=== PATIENT | female | born 1960 | race Caucasian/White ===

== ENCOUNTER 2022-07-28 06:26 | Day surgery (SDC) | payer OTHER, SELFPAY ==
[2022-07-15 10:26] VITALS: BMI 23.1
--- NOTE | 2022-07-28 06:53 | P.PNAN_ITS ---
Anes - Initial Pre Proc Eval Procedure: Operation Date: 07/28/22 08:00 Proposed Procedures p Diagnostic Colonoscopy - Morgan Morales MD Date/Time: 07/28/22 06:53 Surgeon: Morgan Morales MD Pre Op Diagnosis: Other Fecal Abnormalities Patient Data Age: 61 Gender: F Height: 1.63 m Weight: 61 kg Allergies Allergy/AdvReac Type Severity Reaction Status Date / Time NKDA Allergy Mild Other Uncoded 07/28/22 06:54 Home Medications Medication Instructions Recorded Confirmed Type diphenhydramine 25 1 tablet PO HS PRN Insomnia 07/15/22 07/28/22 History mg-acetaminophen 500 mg tablet (Acetaminophen PM) Patient hx anesthesia problems: none Family hx anesthesia problems: none Results Review: All pre-operative results and documents have been reviewed as part of the pre- operative evaluation. [facility] Past Medical History Medical History (Updated 07/28/22 @ 06:54 by Jian Aviles DO) IBS (irritable bowel syndrome) Social History Social History Smoking packs per day: 1 Smoking cigarettes per day: 20.0 Years smoked: 40 Smoking pack-years: 40.00 Smoking status: Current every day smoker Tobacco type: cigarettes Alcohol intake: current Substance use: never Substance use type: does not use Living arrangements: with family Spiritual care concerns: No Anes - Eval Final PreProcedure Day of Procedure 07/28/22 06:53 Patient weight: normal Heart: regular rate and rhythm Lungs: clear to auscultation and normal air movement Airway: Mallampati scale class II Neurological: alert and oriented Last oral intake: >/= 8 hours ASA classification: II Emergent: no Anesthetic plan: proceed Anesthesia type and monitoring: general GIVS and standard monitoring Results Review: All pre-operative results and documents have been reviewed as part of the pre- operative evaluation. Informed Consent: The patient's anesthetic plan and its attendant risks and benefits were discussed with the patient/family/POA. Questions were solicited and answers provided to the satisfaction of the patient/family/POA.
[2022-07-28 06:56] VITALS: BP 126/91; PULSE 95; RESP 16; TEMP 37.2; O2SAT 99
[2022-07-28] MEDS: LACTATED RINGERS 1,000 ML 150 ML IV CONT (07:12)
--- NOTE | 2022-07-28 08:01 | PM.HPGS ---
History of Present Illness History of Present Illness Consent: Risks, benefits, and alternatives have been discussed and questions answered. Patient agrees to proceed with procedure. Chief complaint: Other Fecal Abnormalities Narrative: Candida Leavitt is a 61 year old female here for first colonoscopy, had positive cologuard Review of Systems Constitutional: Constitutional: Denies headache(s) and Denies weakness Eyes: Eyes: Denies blurry vision ENT: Reports Normal hearing present, Denies headache(s) and Denies neck pain Cardiovascular: Cardiovascular: Denies chest pain and Denies dyspnea Respiratory: Respiratory: Denies dyspnea Gastrointestinal: Gastrointestinal: Reports no additional gastrointestinal complaints Genitourinary: Genitourinary: Denies dysuria Musculoskeletal: Musculoskeletal: Denies neck pain Integumentary/Breasts: Skin/Breast: Denies dry skin Neurologic: Reports Normal hearing present, Denies headache(s) and Denies weakness Psychiatric: Psychiatric: Denies anxiety Endocrine: Endocrine: Denies change in body appearance Hematologic/Lymphatic: Hematologic/Lymphatic: Denies easy bleeding Allergic/Immunologic: Allergic/Immunologic: Denies urticaria PMFSH Past Medical History Medical History (Updated 07/28/22 @ 08:02 by Morgan Morales MD) IBS (irritable bowel syndrome) Positive colorectal cancer screening using Cologuard test Social History Social History Smoking packs per day: 1 Smoking cigarettes per day: 20.0 Years smoked: 40 Smoking pack-years: 40.00 Smoking status: Current every day smoker Tobacco type: cigarettes Alcohol intake: current Substance use: never Substance use type: does not use Living arrangements: with family Spiritual care concerns: No Meds Home Medications and Allergies Home Medications Medication Instructions Recorded Confirmed Type diphenhydramine 25 1 tablet PO HS PRN Insomnia 07/15/22 07/28/22 History mg-acetaminophen 500 mg tablet (Acetaminophen PM) Allergies Allergy/AdvReac Type Severity Reaction Status Date / Time NKDA Allergy Mild Other Uncoded 07/28/22 06:54 Vital Signs Vital Signs - 24 hr 07/28/22 06:56 Temperature 98.9 F Pulse Rate 95 Respiratory Rate 16 Blood Pressure 126/91 H Pulse Oximetry 99 Oxygen Delivery Room Air Exam Const: General: comfortable and no acute distress HENMT: Face/Nose/Sinus: Normal nares present Eyes: General: appearance normal, both eyes and all related structures Neck: Neck: no JVD Resp: Auscultation: clear to auscultation bilaterally Cardio: Rate: regular rate Rhythm: regular rhythm GI: Inspection: non-distended GI Palp: Yes Soft to palpation Skin: General skin exam: normal color Neuro: General: gait normal Speech: normal speech Extrem: General: normal to inspection Psych: Mental Status: mental status grossly normal Assessment and Plan Assessment and plan (1) Positive colorectal cancer screening using Cologuard test: Code(s): R19.5 - Other fecal abnormalities Status: Acute Assessment and Plan: colonoscopy
[2022-07-28 08:27] VITALS: BP 104/68; PULSE 80; RESP 16; O2SAT 96
--- NOTE | 2022-07-28 08:30 | SUR.OPER ---
Resolution clip placed x2 to transverse colon polypectomy site. Exp , lot [id number]
[2022-07-28 08:37] VITALS: BP 105/73; PULSE 78; RESP 16; O2SAT 98
[2022-07-28 08:47] VITALS: BP 109/74; PULSE 80; RESP 16; O2SAT 99
--- NOTE | 2022-07-28 11:10 | WPDANESPN ---
Anes - Prog Note Post-Op Date/Time: 07/28/22 11:10 Cardiovascular status: normal Respiratory status: normal Airway patency: baseline Mental status: baseline Post-Op hydration status: normal Vital Signs: Last Vital Signs Temp 37.2 C 07/28/22 06:56 Pulse 80 07/28/22 08:47 Resp 16 07/28/22 08:47 BP 109/74 07/28/22 08:47 Pulse Ox 99 07/28/22 08:47 O2 Del Method Room Air 07/28/22 08:47 Pain Score (VAS): 0 I/O: Intake & Output 07/27/22 07/28/22 07/28/22 23:59 07:59 15:59 Intake Total 600 Balance 600 Post-procedural complaints: none Patient Feedback: Patient satisfied with anesthetic care. Other Findings: Patient vital signs back to baseline. Patient denies nausea and vomiting. Patient's pain under control. Patient OK for discharge.
== END 2022-07-28 08:57 | disposition home or self-care (01) ==
PROVIDERS: PCP Physician Assistant; Visit Provider Internal Medicine Gastroenterology
PROC: 0DJD8ZZ Inspection of Lower Intestinal Tract, Via Natural or Artificial Opening Endoscopic (ICD-10-PCS; CPT 45378; principal; 2022-07-28 08:00)
DX: R19.5 Other fecal abnormalities (principal)
CPT/HCPCS: 45385; 45380

== ENCOUNTER 2022-07-28 08:00 | Outpatient (NON) | payer OTHER, SELFPAY | END 2022-07-28 08:01 | disposition home or self-care (01) | LOC: ANHLAB 07-29 08:07 | PROVIDERS: PCP Physician Assistant; Visit Provider Internal Medicine Gastroenterology | DX: R19.5 Other fecal abnormalities (principal) | CPT/HCPCS: 88305 ==